=== PATIENT | female | born 1995 | race Caucasian/White ===

== ENCOUNTER 2016-12-11 16:19 | Emergency (ER) | payer OTHER ==
[~2016-12-11] VITALS: Ht 160 cm; Wt 62.9 kg
[~2016-12-11 16:19] MED LIST: AMPH20CA3 PO; OMEP40CA PO
[2016-12-11 16:29] VITALS: TEMP 37; Ht 160 cm; Wt 62.9 kg
[2016-12-11] MEDS ORDERED: AZITTAB PO (16:37)
[2016-12-11] MEDS ORDERED: PRED-301 PO (16:37)
[2016-12-11] MEDS ORDERED: ONDANSETRON 4MG OD TAB PO STA (16:50)
[2016-12-11] MEDS ORDERED: HYDROCODONE/ACETAMOPHEN 5/325MG TAB PO ONE (17:00)
--- NOTE | 2016-12-11 17:37 | DIAGNOSTIC IMAGING REPORT ---
HEAD CT NONCONTRAST CT DOSE: 569.73 mGy.cm HISTORY: Trauma Head injury TECHNIQUE: Multiaxial CT images of the head were performed without the use of intravenous contrast. Comparison: None. Findings: The paranasal sinuses and mastoid air cells are clear. There is trace amount of fluid within the left maxillary sinus. The calvarium and skull base are intact. The ventricles and sulci are within normal limits. There is no mass, hematoma, midline shift, or acute infarct. Impression: No acute intracranial abnormality. Electronically signed by: Rod Osei M.D. 12/11/2016 5:36 PM Dictated Date/Time: 12/11/2016 5:34 PM
[2016-12-11] MEDS ORDERED: ONDANSETRON HOME PACK 4MG OD TAB PO ONE (18:00)
[2016-12-11 18:13] VITALS: BP 121/84; PULSE 78; O2SAT 98
--- NOTE | 2016-12-11 21:43 | EMERGENCY ROOM VISIT NOTE ---
ED Visit Note First contact with patient: 16:40 CHIEF COMPLAINT: Head injury HISTORY OF PRESENT ILLNESS: This 21-year-old female patient presented to the emergency department after receiving a head injury after being struck in the back of the head by a basketball about one hour ago. There was no brief loss of consciousness. There has been no vomiting. The patient complains of headache symptoms. The patient denies vision or hearing changes. The headache has been dull. The patient complains of no neck pain. The patient has taken nothing for the pain. The patient rates the pain as dull/10 and 7. The patient denies bowel or bladder dysfunction. The patient denies any other injuries. She has had several concussions in the past. REVIEW OF SYSTEMS: A review of systems was performed with positives and pertinent negatives listed in the history of present illness. All other systems were reviewed and are negative. ALLERGIES: Amoxil MEDICATIONS: See EMR PMH: Otherwise healthy SOCIAL HISTORY: Student lives locally PHYSICAL EXAM: Vital Signs: Reviewed Nurse's notes, vital signs stable. GENERAL : White female, in no acute distress, well-developed, well-nourished. NEURO: The patient is alert, oriented to person place and time, and coherent. Normal mini mental status exam. Negative Romberg and pronator drift. Cerebellar function intact. GCS 15. HEAD: Normocephalic atraumatic. No sutherland sign or raccoon eyes. EYES: Pupils are equal round and reactive to light and accommodation. EOMs are full and optic discs and fundi are normal. There is no swelling or discoloration of the tissue surrounding the eyes. EARS: External auditory canals clear without blood. NOSE: Patent without tenderness. No septal hematoma. FACE: No facial bone tenderness. NECK: Supple. There is no cervical spine tenderness. The patient does not have tenderness with movement of the neck. HEAD CT NONCONTRAST CT DOSE: 569.73 mGy.cm HISTORY: Trauma Head injury TECHNIQUE: Multiaxial CT images of the head were performed without the use of intravenous contrast. Comparison: None. Findings: The paranasal sinuses and mastoid air cells are clear. There is trace amount of fluid within the left maxillary sinus. The calvarium and skull base are intact. The ventricles and sulci are within normal limits. There is no mass, hematoma, midline shift, or acute infarct. Impression: No acute intracranial abnormality. ED COURSE: Physical exam and history were performed. Nursing notes and EMR were reviewed. The patient appears to have been struck in the back of the head by a basketball just prior to arrival. I discussed options of care with the patient, and she did desire to have a CT scan. CT scan was performed and does not show evidence of acute fracture or other intracranial abnormality. Overall I believe the patient is with a mild concussion. She was given medication here in the department and instructions to follow with [facility] this week for further management. She was otherwise invited back to the ER with any new, worsening, or concerning symptoms. Problem List Medical Problems: (1) Exercise-induced asthma Status: Chronic (2) Traumatic brain injury Status: Chronic Current/Historical Medications Scheduled Azithromycin (Zithromax Z-Nilton), 1 PKT PO UD Prednisone (Prednisone), 10 MG PO QAM Allergies Coded Allergies: Amoxicillin (Verified Allergy, Unknown, HIVES, 12/11/16) Vital Signs Date Time Temp Pulse Resp B/P Pulse Ox O2 Delivery O2 Flow Rate FiO2 12/11/16 18:13 78 18 121/84 98 12/11/16 16:29 37.0 83 18 124/89 97 Room Air Medications Administered Medications (Trade) Dose Ordered Sig/Mitchell Route Start Time Stop Time Status Last Admin Dose Admin Acetaminophen/ Hydrocodone Bitart ([place] 5/325 Tab) 1 tab NOW ONCE PO 12/11/16 17:00 12/11/16 17:01 DC 12/11/16 17:12 1 TAB Ondansetron HCl (Zofran Odt) 4 mg NOW STAT PO 12/11/16 16:50 12/11/16 16:51 DC 12/11/16 17:12 4 MG Departure Information Impression Primary Impression: Head injury, closed, with concussion Dispostion Home / Self-Care Condition GOOD Referrals No Doctor, Assigned (PCP) Forms HOME CARE DOCUMENTATION FORM, IMPORTANT VISIT INFORMATION Patient Instructions My [facility] Additional Instructions You were seen and evaluated today on an emergency basis only. This is not a substitute for, or an effort to provide, complete comprehensive medical care. It is not possible to recognize and treat all injuries or illnesses in a single emergency department visit. For this reason it is recommended that you followup with [facility] this week for ongoing care and evaluation. For baseline pain relief you may alternate ibuprofen and acetaminophen every 4 hours for pain control. Take 600 mg ibuprofen (Advil) and then 4 hours later take 1000 mg acetaminophen (Tylenol). Do not take more than 3000 mg acetaminophen in a single day. Drink plenty fluids and remain well hydrated. You are welcome to return to the emergency department anytime with new, worsening, or concerning symptoms.
== END 2016-12-11 18:15 | disposition home or self-care (01) ==
LOC: C.EDB 16:20 → C.EDD 18:15
DX: S06.0X0A Concussion without loss of consciousness, initial encounter (principal); W21.05XA Struck by basketball, initial encounter; Z87.820 Personal history of traumatic brain injury; J45.909 Unspecified asthma, uncomplicated